=== PATIENT | male | born 1995 | race Hispanic/Latino ===

== ENCOUNTER 2018-07-09 03:29 | Emergency (ER) | payer SELFPAY ==
[2018-07-09] MEDS ORDERED: KETOROLAC 30 MG/ML INJ ONE (04:14)
[2018-07-09 04:15] LABS: Absolute Lymphocytes (CBC) 3.7 K/uL (0.7-4.9); Absolute Monocytes 0.9 K/uL (0.1-1.3); Absolute Neutrophil 2.6 K/uL (1.8-8.0); Basophils % 0.4 % (0-1.3); Eosinophils % 2.1 % (0-4.4); Hematocrit 46.6 % (39.6-49.0); Lymphocytes % 49.3 % (15.3-44.8); Monocytes % 12.5 % (3.3-12.3); RBC Red Blood Cell Count 5.66 M/uL (4.33-5.43)
[2018-07-09 04:31] LABS: ALT/SGPT 107 U/L (12-78); AST/SGOT 37 U/L (15-37); Albumin 3.7 g/dL (3.4-5.0); Alkaline Phosphatase 97 U/L (45-117); BUN Blood Urea Nitrogen 17 mg/dL (7-18); Bicarbonate 24 mmol/L (21-32); Bilirubin Direct 0.1 mg/dL (0-0.2); Bilirubin Total 0.4 mg/dL (0.2-1.0); Glucose Level 110 mg/dL (74-106); Lipase 100 U/L (73-393); Potassium 3.8 mmol/L (3.5-5.1); Protein, Total 7.1 g/dL (6.4-8.2); Sodium Level 143 mmol/L (136-145)
[2018-07-09 05:57] LABS: Urine Bacteria <20 /HPF (NONE SEEN); Urine Culture Reflex Order NOT NEEDED; Urine RBC >50 /HPF (NONE SEEN)
[2018-07-09 05:58] LABS: Urine Blood 3+ (NEG); Urine Glucose NEGATIVE (NEG); Urine Protein NEGATIVE (NEG); Urine Specific Gravity 1.025 (1.005-1.030); Urine pH 5.5 (5.0-7.0)
--- NOTE | 2018-07-09 06:23 | ER ---
Nurse's Notes [facility] Name: Dario Sim Age: 22 yrs Sex: Male : 1995 Arrival Date: 07/09/2018 Time: 03:30 Bed 5 Private MD: Diagnosis: Calculus of lower urinary tract, unspecified Presentation: 07/09 03:48 Presenting complaint: Patient states: Pt reports right side kidney pain that started at ea 0300. Hx of kidney stones. Transition of care: patient was not received from another setting of care. Onset of symptoms was July 09, 2018. Risk Assessment: Do you want to hurt yourself or someone else? Patient reports no desire to harm self or others. Initial Sepsis Screen: Does the patient meet any 2 criteria? No. Patient's initial sepsis screen is negative. Does the patient have a suspected source of infection? No. Patient's initial sepsis screen is negative. Care prior to arrival: None. 03:48 Method Of Arrival: Ambulatory ea 03:48 Acuity: KASEY 3 ea Historical: - Allergies: 03:56 Augmentin; ea 03:56 Bactrim; ea 03:56 Cefazolin; ea 03:56 PENICILLINS; ea - Home Meds: 03:56 potassium citrate oral oral [Active]; ea - PMHx: 03:56 Hypertension; Kidney stones; ea - PSHx: 03:56 None; ea - Immunization history:: Adult Immunizations up to date. - Social history:: Smoking status: Patient/guardian denies using tobacco. - Ebola Screening: : No symptoms or risks identified at this time. Screenin:51 Abuse screen: Denies threats or abuse. Nutritional screening: No deficits noted. ea Tuberculosis screening: No symptoms or risk factors identified. Fall Risk IV access (20 points). Assessment: 03:49 General: Appears uncomfortable, Behavior is calm, cooperative, appropriate for age. ea Pain: Complains of pain in right sided flank pain that radiates to abdomen. Neuro: Level of Consciousness is awake, alert, obeys commands, Oriented to person, place, time, situation. Cardiovascular: Patient's skin is warm and dry. Respiratory: Airway is patent Respiratory effort is even, unlabored, Respiratory pattern is regular, symmetrical. : Reports history of kidney stones. Derm: Skin is pink, warm \T\ dry. Musculoskeletal: Circulation, motion, and sensation intact. 04:50 Reassessment: Patient and/or family updated on plan of care and expected duration. Pain ea level reassessed. Patient is alert, oriented x 3, equal unlabored respirations, skin warm/dry/pink. 05:40 Reassessment: Patient and/or family updated on plan of care and expected duration. Pain ea level reassessed. Patient is alert, oriented x 3, equal unlabored respirations, skin warm/dry/pink. 06:24 Reassessment: Patient and/or family updated on plan of care and expected duration. Pain ea level reassessed. Patient is alert, oriented x 3, equal unlabored respirations, skin warm/dry/pink. Patient states feeling better. Patient states symptoms have improved. 06:36 Reassessment: Patient and/or family updated on plan of care and expected duration. Pain ea level reassessed. Patient is alert, oriented x 3, equal unlabored respirations, skin warm/dry/pink. Discharge instructions given to patient, verbalized the understanding of instruction Patient states feeling better. Patient states symptoms have improved. Vital Signs: 03:50 BP 151 / 95; Pulse 53; Resp 18; Temp 97.6; Pulse Ox 100% on R/A; Weight 103.42 kg; ea Height 5 ft. 6 in. (167.64 cm); Pain 10/10; 05:49 BP 124 / 53; Pulse 53; Resp 18; Pulse Ox 96% on R/A; Pain 5/10; ea 06:25 BP 117 / 58; Pulse 53; Resp 18; Pulse Ox 97% on R/A; ea 03:50 Body Mass Index 36.80 (103.42 kg, 167.64 cm) ea ED Course: 03:30 Patient arrived in ED. am2 03:35 Lonnie Zurita MD is Attending Physician. tw4 03:47 Ashley Gould RN is Primary Nurse. ea 03:48 Arm band placed on right wrist. Patient placed in an exam room, on a stretcher, on ea pulse oximetry. 03:49 Inserted saline lock: 20 gauge in right antecubital area, using aseptic technique. ea Blood collected. 03:52 Patient has correct armband on for positive identification. Placed in gown. Bed in low ea position. Call light in reach. Side rails up X 1. 03:54 Triage completed. ea 04:[address] via wheelchair. kw1 04:14 CT Stone Protocol In Process Unspecified. EDMS 04:16 CT completed. Patient tolerated procedure well. Patient moved back from CT. kw1 06:23 Lashae Jones MD is Referral Physician. tw4 06:26 No provider procedures requiring assistance completed. ea 06:37 IV discontinued, intact, bleeding controlled, No redness/swelling at site. Pressure ea dressing applied. Administered Medications: 04:00 Drug: TORadol 30 mg Route: IVP; Site: right antecubital; ea 04:42 Follow up: Response: No adverse reaction; Pain is decreased ea Outcome: 06:23 Discharge ordered by MD. tw4 06:37 Discharge instructions given to patient, Instructed on discharge instructions, follow ea up and referral plans. medication usage, Demonstrated understanding of instructions, follow-up care, medications, Prescriptions given X 2. 06:40 Discharged to home ambulatory, with significant other. ea 06:40 Condition: improved 06:40 Patient left the ED. ea Signatures: Dispatcher [employer] EDTati Villavicencio am2 Ashley Gould, RN RN Bhumika Lainez kw1 Lonnie Zurita MD MD tw4 Corrections: (The following items were deleted from the chart) 05:50 05:49 BP 124 / 53; Pulse 53bpm; Resp 18bpm; Pulse Ox 96% RA; ea ea
--- NOTE | 2018-07-09 06:24 | EDPHYS ---
Physician Documentation [facility] Name: Dario Sim Age: 22 yrs Sex: Male : 1995 Arrival Date: 07/09/2018 Time: 03:30 Bed 5 Private MD: ED Physician Lonnie Zurita HPI: 07/09 04:21 This 22 yrs old Male presents to ER via Ambulatory with complaints of R Side tw4 Pain-Kidney. 04:21 The patient complains of pain in the right low back. The pain radiates to the right low tw4 back. Onset: The symptoms/episode began/occurred just prior to arrival. Modifying factors: The symptoms are alleviated by nothing. the symptoms are aggravated by nothing. Severity of pain: At its worst the pain was moderate in the emergency department the pain is unchanged. The patient has not experienced similar symptoms in the past. Historical: - Allergies: 03:56 Augmentin; ea 03:56 Bactrim; ea 03:56 Cefazolin; ea 03:56 PENICILLINS; ea - Home Meds: 03:56 potassium citrate oral oral [Active]; ea - PMHx: 03:56 Hypertension; Kidney stones; ea - PSHx: 03:56 None; ea - Immunization history:: Adult Immunizations up to date. - Social history:: Smoking status: Patient/guardian denies using tobacco. - Ebola Screening: : No symptoms or risks identified at this time. ROS: 04:21 Constitutional: Negative for fever, chills, and weight loss, Eyes: Negative for injury, tw4 pain, redness, and discharge, Cardiovascular: Negative for chest pain, palpitations, and edema, Respiratory: Negative for shortness of breath, cough, wheezing, and pleuritic chest pain, Abdomen/GI: Negative for abdominal pain, nausea, vomiting, diarrhea, and constipation. 04:21 Skin: Negative for injury, rash, and discoloration, Neuro: Negative for headache, weakness, numbness, tingling, and seizure. 04:21 Back: Positive for flank pain, on the right. Exam: 04:21 Constitutional: This is a well developed, well nourished patient who is awake, alert, tw4 and in no acute distress. Head/Face: Normocephalic, atraumatic. Chest/axilla: Normal chest wall appearance and motion. Nontender with no deformity. No lesions are appreciated. Cardiovascular: Regular rate and rhythm with a normal S1 and S2. No gallops, murmurs, or rubs. Normal PMI, no JVD. No pulse deficits. Respiratory: Lungs have equal breath sounds bilaterally, clear to auscultation and percussion. No rales, rhonchi or wheezes noted. No increased work of breathing, no retractions or nasal flaring. Abdomen/GI: Soft, non-tender, with normal bowel sounds. No distension or tympany. No guarding or rebound. No evidence of tenderness throughout. 04:21 Back: CVA tenderness, is noted on the right. Vital Signs: 03:50 BP 151 / 95; Pulse 53; Resp 18; Temp 97.6; Pulse Ox 100% on R/A; Weight 103.42 kg; ea Height 5 ft. 6 in. (167.64 cm); Pain 10/10; 05:49 BP 124 / 53; Pulse 53; Resp 18; Pulse Ox 96% on R/A; Pain 5/10; ea 06:25 BP 117 / 58; Pulse 53; Resp 18; Pulse Ox 97% on R/A; ea 03:50 Body Mass Index 36.80 (103.42 kg, 167.64 cm) ea MDM: 03:35 Patient medically screened. tw4 04:51 Differential diagnosis: nephrolithiasis, pyelonephritis, UTI. Data reviewed: vital tw4 signs, nurses notes. Data interpreted: Pulse oximetry: Interpretation: normal. Counseling: I had a detailed discussion with the patient and/or guardian regarding: the historical points, exam findings, and any diagnostic results supporting the discharge/admit diagnosis. Medication response: Toradol markedly relieved the patient's pain. Response to treatment: the patient's symptoms have resolved after treatment, and as a result, I will discharge patient. 06:22 Special discussion: I discussed with the patient/guardian in detail that at this point tw4 there is no indication for admission to the hospital. It is understood, however, that if the symptoms persist or worsen the patient needs to return immediately for re-evaluation. 07/09 03:37 Order name: Basic Metabolic Panel; Complete Time: 06:22 tw4 07/09 06:22 Interpretation: Normal except: CL 110; GLUC 110. tw4 07/09 03:37 Order name: CBC with Diff; Complete Time: 06:22 07/09 06:22 Interpretation: Normal except: RBC 5.66; CHET% 35.7; LYM% 49.3; MN% 12.5. 07/09 03:37 Order name: Creatinine for Radiology; Complete Time: 06:22 07/09 03:37 Order name: Hepatic Function; Complete Time: 06:22 07/09 06:22 Interpretation: Normal except: ALT 107. 07/09 03:37 Order name: Lipase; Complete Time: 06:22 07/09 03:37 Order name: Urine Microscopic Only; Complete Time: 06:22 07/09 06:22 Interpretation: URBC >50. 07/09 03:37 Order name: IV Saline Lock; Complete Time: 03:49 07/09 03:37 Order name: Labs collected and sent; Complete Time: 03:49 07/09 03:37 Order name: Urine Dipstick-Ancillary (obtain specimen); Complete Time: 04:26 07/09 03:37 Order name: CT Stone Protocol 07/09 04:13 Order name: Urine Dipstick--Ancillary (enter results); Complete Time: 06:22 07/09 06:22 Interpretation: Normal except: UBLD 3+. Administered Medications: 04:00 Drug: TORadol 30 mg Route: IVP; Site: right antecubital; ea 04:42 Follow up: Response: No adverse reaction; Pain is decreased ea Disposition: 07/09/18 06:23 Discharged to Home. Impression: Calculus of lower urinary tract, unspecified. - Condition is Stable. - Discharge Instructions: Kidney Stones, [id number]. - Prescriptions for Ibuprofen 800 mg Oral Tablet - take 1 tablet by ORAL route every 8 hours As needed take with food; 30 tablet. Tylenol- Codeine #3 300-30 mg Oral Tablet - take 2 tablet by ORAL route every 6 hours As needed; 6 tablet. - Work release form, Medication Reconciliation Form, Thank You Letter, Antibiotic Education, Prescription Opioid Use form. - Follow up: Lashae Jones MD; When: Upon discharge from the Emergency Department; Reason: If symptoms return, Recheck today's complaints, Continuance of care. Signatures: Dispatcher [employer] Ashley Sepulveda, RN Lonnie Decker ea, MD MD tw4 Corrections: (The following items were deleted from the chart) 06:40 06:23 07/09/2018 06:23 Discharged to Home. Impression: Calculus of lower urinary tract, ea unspecified. Condition is Stable. Forms are Medication Reconciliation Form, Thank You Letter, Antibiotic Education, Prescription Opioid Use. Follow up: Lashae Jones; When: Upon discharge from the Emergency Department; Reason: If symptoms return, Recheck today's complaints, Continuance of care. tw4
--- NOTE | 2018-07-09 08:23 | RAD REPORT ---
EXAM DESCRIPTION: CT - Stone Protocol - 07/09/2018 6:57 am CLINICAL HISTORY: Flank pain. FLANK PAIN COMPARISON: No comparisons TECHNIQUE: Axial images were obtained without oral or IV contrast. Lack of contrast limits solid org an and vascular assessment. The [id number] spans the entirety of the system partially obscuring uppermost abdomen and lung bases. Coronal reformatted images were obtained and reviewed. All CT scans are performed using dose optimization technique as appropriate and may include automated exposure control or mA/KV adjustment according to patient size. FINDINGS: The lower lung olsen are clear. Imaged portions of the liver and spleen show no suspicious findings on non-contrast imaging. The panc reas and adrenal glands are normal. No pathologic lymphadenopathy in the abdomen or pelvis. 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 The right renal moiety demonstrates mil d right hydronephrosis caused by 5 mm calculus (1480 HU) at the right-sided UPJ. No bowel obstruction, free air, free fluid or abscess. Normal appendix noted. No significant bony abnormality. IMPRESSION: Horseshoe kidney with multiple small calculi present. The right renal moiety demonstrates mild hydronephrosis as a result of 5 mm calculus at the right UPJ .
== END 2018-07-09 06:40 | disposition home or self-care (01) ==
LOC: ER 03:29
DX: N21.9 Calculus of lower urinary tract, unspecified (principal); I10 Essential (primary) hypertension; Z88.0 Allergy status to penicillin; Z88.1 Allergy status to other antibiotic agents
CPT/HCPCS: 36415; 74176; 76377; 80048; 80076; 81003; 81015; 83690; 85025; 96374; 99284